=== PATIENT | female | born 1955 | race Caucasian/White ===

== ENCOUNTER 2017-02-20 11:53 | Emergency (ER) | payer MEDICAID ==
[2011-04-22 13:31] VITALS: BMI 34.3
[2017-02-20 14:11] LABS: BASOPHILS 0.1 % (0-2); HEMATOCRIT 39.8 % (36.0-48.0); IMMATURE GRANULOCYTES 0.1 % (0-5); LYMPHOCYTES 42.9 % (15-50); MCH 30.6 pg (26.0-34.0); MCHC 32.7 g/dL (31.0-37.0); MCV 93.6 fL (80.0-100.0); MEAN PLATELET VOLUME 9.8 fL (7.4-10.4); MONOCYTES 5.6 % (2-11); NEUTROPHILS 49.3 % (40-80); PLATELET COUNT 224 10x3/uL (130-400); RBC 4.25 10x6/uL (4.00-5.40); RDW 12.5 % (11.5-14.5); WBC 7.5 10x3/uL (4.8-10.8)
[2017-02-20 14:30] LABS: ALBUMIN 3.4 g/dL (3.4-5.0); ALKALINE PHOSPHATASE 90 U/L (46-116); ALT (SGPT) 22 U/L (10-68); BILIRUBIN - TOTAL 0.31 mg/dL (0.2-1.3); CALC OSMOLALITY 275 mosm/kg (275-300); CALCIUM 8.3 mg/dL (8.5-10.1); CARBON DIOXIDE 30.8 mmol/L (21.0-32.0); CHLORIDE - SERUM 103 mmol/L (98-107); CREATININE - SERUM 0.7 mg/dL (0.6-1.3); GLUCOSE 85 mg/dL (74-106); POTASSIUM - SERUM 3.6 mmol/L (3.5-5.1); PROTEIN - SERUM 6.8 g/dL (6.4-8.2); SODIUM 139 mmol/L (136-145); UREA NITROGEN 11 mg/dL (7-18); eGFR NON AFRICAN AMERICAN > 90 mL/min (90-120)
[2017-02-20 14:42] LABS: CHOL - HDL RATIO 5.1 ratio (2.3-4.1); CHOLESTEROL, TOTAL 197 mg/dL (0-200); CKMB 3.9 U/L (0.0-3.6); CREATINE KINASE 193 UL (21-215); HDL CHOLESTEROL 39 mg/dL (32-96); LDL CHOLESTEROL 118 mg/dL (0-100); TRIGLYCERIDE 202 mg/dL (30-200)
[2017-02-20 14:43] LABS: TROPONIN-I < 0.017 ng/mL (0.000-0.060)
== END 2017-02-20 15:35 | disposition home or self-care (01) ==
LOC: D.ER 11:53
PROVIDERS: Nurse Practitioner Family
DX: R07.89 Other chest pain (principal); J20.9 Acute bronchitis, unspecified; K21.9 Gastro-esophageal reflux disease without esophagitis; M79.7 Fibromyalgia; I10 Essential (primary) hypertension; I45.6 Pre-excitation syndrome

== ENCOUNTER 2018-12-30 21:21 | Emergency (ER) | payer MEDICAID ==
[~2018-12-30] VITALS: Ht 160 cm; Wt 68.2 kg
[2018-12-30 21:35] VITALS: Ht 160 cm; Wt 68.2 kg
[2018-12-30 23:30] VITALS: BP 133/91
== END 2018-12-30 23:30 | disposition home or self-care (01) ==
LOC: D.ER 21:21
DX: M54.5 Low back pain (principal)

== ENCOUNTER → 2021-02-21 20:32 | Outpatient (CLI) | payer BC ==
[2018-12-30 21:35] VITALS: BMI 26.6
== END | disposition home or self-care (01) ==
LOC: D.MAMMO 01-22 11:30
PROVIDERS: ATTEND Family Medicine
DX: Z12.31 Encounter for screening mammogram for malignant neoplasm of breast (principal)